=== PATIENT | female | born 1990 | race Caucasian/White ===

== ENCOUNTER 2024-07-22 13:21 | Emergency (ER) | payer MEDICAID, SELFPAY ==
[2024-07-22 13:58] VITALS: BP 147/95; PULSE 78; RESP 18; TEMP 37; O2SAT 97; BMI 31.8
--- NOTE | 2024-07-22 14:27 | XR_ITS ---
Examination: Left ankle 2 views Technique one AP lateral left ankle 2 views Exam date and time: July 22, 2024 1448 hours INDICATIONS: Patient fell today with into the ankle, ankle pain. FINDINGS: Medial malleolar soft tissue swelling No acute fracture No dislocation IMPRESSION: No acute fracture
--- NOTE | 2024-07-22 14:29 | XR_ITS ---
Examination: Foot, left, 3 views Technique: AP, oblique, lateral views foot, 3 views Date and time of exam: July 22, 2024 1448 hours INDICATIONS: Patient fell today with injury to foot, foot pain. FINDINGS: Accessory bone medial navicular No acute fracture Mild narrowing first metatarsophalangeal joint No dislocation IMPRESSION: No acute fracture
--- NOTE | 2024-07-22 14:31 | PD.EDANKLE ---
Lower Extremity Injury RME/HPI General Chief Complaint: Ankle/Foot Injury Stated Complaint: LEFT ANKLE PAIN Time Seen by Provider: 07/22/24 13:27 Arrival date/time: 07/22/24 13:21 RME / HPI RME / HPI Narrative: 34-year-old female patient came in for evaluation regarding left ankle pain. Patient accidentally twisted the left ankle while getting off the truck/jeep yesterday night resulting to pain to the left foot and left ankle worse with ambulation. Denies any other injury. Patient is ambulatory but limping. Related Data Home Medications ?Medication ?Instructions ?Recorded ?Confirmed norethindrone acetate 1.5 1 tab PO QDAY 01/30/18 01/30/18 mg-ethinyl estradiol 30 mcg tablet (Microgestin) Previous Rx's ?Medication ?Instructions ?Recorded baclofen 10 mg tablet 10 mg PO BID #20 tabs 12/05/23 Allergies Allergy/AdvReac Type Severity Reaction Status Date / Time NSAIDS (Non-Steroidal Allergy Intermediate HX Verified 10/05/20 09:59 Anti-Inflamma ULCERS,GASTRIC BYPASS morphine Allergy Mild Rash Verified 10/05/20 09:59 pecan nut Allergy Mild Rash Verified 10/05/20 09:59 walnut Allergy Mild Photosensit Verified 10/05/20 09:59 ivity Review of Systems Review of Systems Narrative Review of Systems: Review of system reviewed and within normal limits except mentioned in HPI ED Exam Narrative Physical exam: VITAL SIGNS: Reviewed. GENERAL APPEARANCE: Alert and interactive, follows commands, no acute distress, HEAD AND FACE: Non-traumatic. ENT: PERRL, pink conjunctivitis, eyelid no trauma, Mucous membrane moist. NECK: Supple, nontender, no nuchal rigidity. CHEST: No tenderness, no crepitus, no paradoxical movement, no retractions. LUNGS: Clear, well ventilated, symmetric, no rales, no wheezing, no ronchi, no stridor, good breath sounds bilaterally. HEART: Regular rate, regular rhythm, no murmur, no gallops. ABDOMEN: Soft, positive bowel sounds, nondistended, no guarding, nontender, no rebound, no masses, RECTAL: Deferred. GENITAL: Deferred. NEUROLOGICAL: Gross motor function intact sensory function intact, Appropriate for age. MUSCULOSKELETAL: low back nontender, full range of motion. EXTREMITIES: Left ankle tenderness mild swelling, full range of motion. SKIN: Color pink, dry, no rash, no lacerations, no abrasions, no contusions. LYMPHATICS: Deferred. Course Quality Measures none Orders Category Date Time Status XR ankle LT 2V Stat Exams 07/22/24 14:27 Completed XR foot comp LT min 3V Stat Exams 07/22/24 14:29 Completed Vital Signs Vital signs: Vital Signs Temperature 98.6 F 07/22/24 13:58 Pulse Rate 78 07/22/24 13:58 Respiratory Rate 18 07/22/24 13:58 Blood Pressure 147/95 H 07/22/24 13:58 Pulse Oximetry (%) 97 07/22/24 13:58 Oxygen Delivery Method Room Air 07/22/24 13:58 Extremity Injury, Lower MDM Narrative [facility] Narrative:: 34-year-old female patient came in for evaluation regarding left ankle pain. Patient accidentally twisted the left ankle while getting off the truck/jeep yesterday night resulting to pain to the left foot and left ankle worse with ambulation. Denies any other injury. Patient is ambulatory but limping. X-ray of the foot came back unremarkable except ankle came back unremarkable. Results discussed with the patient David wrap applied Patient appears nontoxic and hemodynamically stable. Patient discharged home and instructed to follow-up with primary care provider in 24 to 48 hours. Instructed to return to the emergency department immediately if worsening of symptoms Patient data External records reviewed:: None Clinical information provided by:: patient Social determinants that could affect healthcare access:: none Patient has the following chronic illnesses:: None How is presenting disease/condition affected by chronic disease/condition?: no chronic disease Evaluation data The following diagnostics were reviewed and interpreted by me:: radiology exam(s) Lab and/or radiology exams considered but not ordered:: None Interpretation Summary: See results in MDM Medications / Prescriptions Medications or Prescriptions considered but not ordered:: None Medication administrations:: None Consultations Consultation(s) initiated? (list below): No Diagnosis Extremity Injury, Lower Differential Diagnosis: ankle fracture and other (Ankle sprain ankle pain) Most likely diagnosis given after review of the tests above:: Ankle sprain Admission Indicated Admission indicated?: not indicated Admission Request Was there a request for admission?: No Disposition Plan Disposition Plan: Discharge Discharge Attestation Discharge Attestation: The patient and all family members were given an opportunity to ask questions and understood the discharge instructions. Discharge instructions specifically effects, indications for sooner follow up or return to the emergency department, and the expected course of current diagnosis. Patient condition: Stable Discharge Plan Plan Patient Disposition: HOME (Self Care) Discharge Disposition comment: stable Prescriptions/Referrals Prescriptions/Med Rec: No Action norethindrone ac-eth estradiol [Microgestin 1.5/30 (21)] 1.5-30 mg-mcg Tablet 1 tab PO QDAY baclofen 10 mg tablet 10 mg PO BID Qty: 20 0RF Referrals: Parish Lomeli FNP [Primary Care Provider] - In 1 week Problem List Clinical Impression: Ankle sprain and strain Patient/Caregiver Discharge Instructions Discharge Activity: activity as tolerated Education Materials: ED DAVID Wrap Additional Instructions: Thank you for the opportunity for serving you today. You are stable for discharged . You are advised to: Follow-up with your PCP in 1 to 2 days Return to ED for worsening of symptoms Increase oral fluids David wrap as needed Print Language: Wolof Stand Alone Forms: Gissel Award Info., Patient Portal Info Letter SARAHY Supervising Physician SARAHY Supervising Physician: MD Patricia
== END 2024-07-22 16:50 | disposition home or self-care (01) ==
PROVIDERS: Emergency Provider Emergency Medicine
DX: S93.402A Sprain of unspecified ligament of left ankle, initial encounter (principal); X50.1XXA Overexertion from prolonged static or awkward postures, initial encounter
CPT/HCPCS: 73600; 73630; 99283

== ENCOUNTER → 2024-09-19 | Outpatient (CLI) | payer MEDICAID, SELFPAY ==
--- NOTE | 2024-09-19 12:00 | XR_ITS ---
Examination: MRI left ankle, without contrast Date and time of exam: September 19, 2024 1331 hours INDICATIONS: Patient fell 6 weeks ago, patient felt a pop in the ankle followed by pain Technique: Multiple axial sagittal and coronal images of the left ankle have been obtained with the Siemens high-resolution 1.5 Mary MRI scanner. Images obtained include T2-weighted fat-suppressed sagittal sections, TR 3500, TE 46, T2 weighted coronal fat suppressed images, TR 3050, TE 84, T2-weighted transverse fat suppressed images, TR 3260, TE 63, proton density transverse images, TR 4720 TE 46, and T1 weighted coronal images, TR 560, TE 13. Findings: Adequate marrow signal distal tibia distal fibular, talus, calcaneus, cuboid and cuneiforms Achilles tendon plantar fascia intact Anterior posterior inferior tibiofibular ligaments intact Moderate strain anterior talofibular ligament Flexor tendons intact Flexor tendons intact with tendinitis peroneus longus and brevis IMPRESSION: No occult fracture bone contusion or marrow edema Moderate strain anterior talofibular ligament Tendinitis peroneus longus and brevis
== END | disposition home or self-care (01) ==
LOC: SMRI 11:37
PROVIDERS: Referring Provider Podiatrist; Visit Provider Podiatrist
DX: M24.272 Disorder of ligament, left ankle (principal); M67.874 Other specified disorders of tendon, left ankle and foot; S93.409S Sprain of unspecified ligament of unspecified ankle, sequela; W19.XXXS Unspecified fall, sequela
CPT/HCPCS: 73721

== ENCOUNTER 2025-02-22 21:39 | Emergency (ER) | payer MEDICAID, SELFPAY ==
[2025-02-22 21:42] VITALS: BMI 30.5
--- NOTE | 2025-02-22 22:10 | PC.NURSE ---
PT INFORMED ME THAT SHE IS LEAVING.
== END 2025-02-22 22:11 | disposition left against medical advice (07) ==
LOC: SERX 22:15
PROVIDERS: Emergency Provider Emergency Medicine
DX: Z53.21 Procedure and treatment not carried out due to patient leaving prior to being seen by health care provider (principal)
CPT/HCPCS: 99281